=== PATIENT | male | born 1960 | race Two or more races ===

== ENCOUNTER 2023-05-21 18:29 | Inpatient (IN) | payer OTHER ==
[~2023-05-21] VITALS: Ht 167.6 cm; Wt 76.2 kg
[~2023-05-21 18:29] MED LIST: ACET-2070 GT; ACET-2605 GT; ACET-3511 GT; ALBU2.5V13 IH; ARGI1POW13 GT; ASCO500L2 GT; ASPI-1169 GT; ATOR80TA GT; BISA10SU11 RC; CHLO473M5 MM; CHOL200059 GT; DEXT15DR6 EACHEYE; DOCU100T2 GT; FERR220E2 PO; GUAI100S9 GT; INSU100V39 SQ; INSU100V7 SQ; MAGN400O6 GT; MULT9LIQ9 GT; NA P133E RC; NUT.237L31 GT; OMEP20CA15 GT; POVI3780 TP; SENN-261 GT; TERA10CA4 GT; ZINC220C6 GT
[2023-05-21 18:59] LABS: BASOPHILS % (AUTO) 0.5 % (0.0-2.0); EOSINOPHILS % (AUTO) 0.6 % (0.0-6.0); HEMATOCRIT 35 % (39-51); HEMOGLOBIN 11.1 g/dL (13.5-17.5); LYMPHOCYTES # (AUTO) 0.8 K/uL (0.8-4.8); LYMPHOCYTES % (AUTO) 9.6 % (20.0-44.0); MEAN CORPUSCULAR HEMOGLOBIN 25 PG (26.0-33.0); MEAN CORPUSCULAR HGB CONC 32 g/dl (31.0-36.0); MEAN CORPUSCULAR VOLUME 81 fL (80-96); MONOCYTES # (AUTO) 0.7 K/uL (0.1-1.30); MONOCYTES % (AUTO) 7.9 % (2.0-12.0); NEUTROPHILS # (AUTO) 6.8 K/uL (1.8-8.9); NEUTROPHILS % (AUTO) 81.4 % (43.0-81.0); PLATELET COUNT (AUTO) 341 K/uL (150-450); RED BLOOD CELL COUNT(AUTO) 4.39 MIL/uL (4.5-6.0); RED CELL DISTRIBUTION WIDTH 17.8 % (11.5-15.0); WHITE BLOOD COUNT (AUTO) 8.3 K/uL (4.3-11.0)
[2023-05-21] MEDS ORDERED: VANCOMYCIN 1 GM /D5W 250 ML PB IV ONE (18:59)
[2023-05-21] MEDS ORDERED: PIPERACI/TAZO 3.375GM/D5W 50ML PB IV ONE (18:59)
[2023-05-21] MEDS ORDERED: ONDANSETRON HCL/PF 4 MG/2 ML VIAL ONE (18:59)
[2023-05-21] MEDS ORDERED: IV NS 0.9% 1,000 ML BAG IV ONE (19:00)
[2023-05-21] MEDS ORDERED: PANTOPRAZOLE 80 MG in IV NS 0.9% 100 ML IV ONE (19:00)
[2023-05-21] MEDS ORDERED: AZITHROMYCIN 500 MG in IV D5W 250 ML IV ONE (19:00)
[2023-05-21] MEDS ORDERED: PANTOPRAZOLE 80 MG in IV NS 0.9% 500 ML IV PRN (19:00)
[2023-05-21] MEDS ORDERED: POLY15DR40 EACHEYE (19:00)
[2023-05-21] MEDS ORDERED: VANCOMYCIN 1 GM in IV D5W 250 ML IV ONE (19:00)
[2023-05-21] MEDS ORDERED: AMIN30LI2 GT (19:00)
[2023-05-21] MEDS ORDERED: ACETAMINOPHEN 650 MG/SUPP.RECT RC ONE (19:00)
[2023-05-21] MEDS ORDERED: PIPERACILLIN /TAZOBACTAM 3.375 G in IV D5W 50 ML IV ONE (19:00)
[2023-05-21] MEDS ORDERED: IPRA0.2S9 IH ×2 (19:00)
[2023-05-21] MEDS ORDERED: ONDA4TAB5 GT (19:00)
[2023-05-21] MEDS ORDERED: FERR300L GT (19:00)
[2023-05-21] MEDS ORDERED: PANTOPRAZOLE 80 MG in IV NS 0.9% 500 ML IV ONE (19:00)
[2023-05-21] MEDS ORDERED: ONDANSETRON HCL/PF 4 MG/2 ML VIAL IVP ONE (19:00)
[2023-05-21] MEDS ORDERED: ACET-868 GT ×2 (19:00)
[2023-05-21] MEDS ORDERED: TRIA15CR2 TP (19:00)
[2023-05-21] MEDS ORDERED: PETR113O TP (19:01)
[2023-05-21 19:02] VITALS: O2SAT 95
[2023-05-21 19:11] LABS: CALCIUM, SERUM 9.2 mg/dL (8.5-10.1); CARBON DIOXIDE 31 mmol/L (21-32); CHLORIDE 106 mmol/L (98-107); CREATININE 1.5 mg/dL (0.6-1.3); GLUCOSE 193 mg/dL (74-106); POTASSIUM 4.4 mmol/L (3.5-5.1); SODIUM SERUM 148 mmol/L (136-145); UREA NITROGEN, BLOOD 23 mg/dL (7-18)
[2023-05-21 19:22] LABS: ALANINE AMINOTRANSFERASE 49 U/L (12-78); ALBUMIN 2.5 g/dL (3.4-5.0); ALKALINE PHOSPHATASE 104 U/L (46-116); ASPARTATE AMINOTRANSFERASE 16 U/L (15-37); BILIRUBIN,DIRECT 0.2 mg/dL (0.0-0.2); NT-PRO BNP 217 pg/mL (0-125); TOTAL PROTEIN, SERUM 8.3 g/dL (6.4-8.2)
[2023-05-21 20:04] LABS: LACTIC ACID 2.5 mmol/L (0.4-2.0)
[2023-05-21] MEDS ORDERED: ACETAMINOPHEN ES 500 MG TABLET GT PRN (20:30)
[2023-05-21] MEDS: TERAZOSIN HCL 5 MG CAPSULE GT SCH (21:00)
[2023-05-21] MEDS ORDERED: MAGNESIUM HYDROXIDE 30 ML UDC PO PRN (21:00)
[2023-05-21] MEDS ORDERED: ZOLPIDEM TARTRATE 5 MG TABLET PO PRN (21:00)
[2023-05-21] MEDS ORDERED: Z GUARD REMEDY 4 OZ OINT TP PRN (21:00)
[2023-05-21] MEDS: ATORVASTATIN 40 MG TABLET GT SCH (21:00)
[2023-05-21] MEDS ORDERED: ACETAMINOPHEN 650 MG/20.3 ML UDC GT PRN (21:00)
[2023-05-21] MEDS ORDERED: MAG HYDROX/AL HYDROX/SIMETH 30 ML UDC PO PRN (21:00)
[2023-05-21] MEDS ORDERED: ONDANSETRON HCL/PF 4 MG/2 ML VIAL IVP PRN (21:00)
[2023-05-21] MEDS ORDERED: ACETAMINOPHEN 325 MG TABLET PO PRN (21:00)
[2023-05-21] MEDS ORDERED: DEXTROSE 50%-WATER 50 ML DISP.SYRIN IV PRN (21:30)
[2023-05-21 23:10] VITALS: O2SAT 99
[2023-05-21] MEDS ORDERED: ALBUTEROL FS 2.5 MG/0.5 ML VIAL.NEB IH PRN (23:30)
[2023-05-21] MEDS ORDERED: IPRATROPIUM NEB FS 0.5 MG/2.5 ML AMPUL.NEB IH PRN (23:30)
[2023-05-21] MEDS: PANTOPRAZOLE 40 MG VIAL IV SCH (23:32)
[2023-05-22] VITALS (19 sets, daily range): BP systolic 85–103; BP diastolic 50–67; TEMP 98–99.8; O2SAT 94–100
[2023-05-22] MEDS ORDERED: PIPERACILLIN /TAZOBACTAM 3.375 G in IV D5W 50 ML IV SCH ×2
[2023-05-22] MEDS: BLOOD SUGAR DIAGNOSTIC 1 EACH STRIP IN SCH ×5 (00:05→23:30)
[2023-05-22 00:56] LABS: HEMOGLOBIN 9.3 g/dL (13.5-17.5)
[2023-05-22] MEDS: INSULIN REGULAR, HUMAN 100 UNIT/ML 3 ML VIAL SQ PRN ×4 (01:11→23:34)
[2023-05-22] MEDS: IPRATROPIUM NEB FS 0.5 MG/2.5 ML AMPUL.NEB IH SCH ×4 (01:54→20:09)
[2023-05-22] MEDS: ALBUTEROL FS 2.5 MG/0.5 ML VIAL.NEB IH SCH ×4 (01:54→20:09)
[2023-05-22] MEDS ORDERED: PIPERACI/TAZO 3.375GM/D5W 50ML PB IV ONE (03:35)
[2023-05-22] MEDS ORDERED: ZOSYN IVPB 3.375 G in IV D5W 50ml IV ONE (04:00)
[2023-05-22] MEDS: IV NS 0.9% 1,000 ML IV PRN (06:01)
[2023-05-22] MEDS ORDERED: MAG HYDROX/AL HYDROX/SIMETH 30 ML UDC GT PRN (06:52)
[2023-05-22] MEDS ORDERED: ZOLPIDEM TARTRATE 5 MG TABLET GT PRN (06:52)
[2023-05-22] MEDS ORDERED: MAGNESIUM HYDROXIDE 30 ML UDC GT PRN (06:53)
[2023-05-22 07:42] LABS: BASOPHILS # (AUTO) 0.1 K/uL (0.0-0.2); EOSINOPHILS # (AUTO) 0.5 K/uL (0.0-0.7); EOSINOPHILS % (AUTO) 4.7 % (0.0-6.0); HEMATOCRIT 28 % (39-51); HEMOGLOBIN 8.7 g/dL (13.5-17.5); LYMPHOCYTES # (AUTO) 1.9 K/uL (0.8-4.8); LYMPHOCYTES % (AUTO) 18.4 % (20.0-44.0); MEAN CORPUSCULAR HEMOGLOBIN 25 PG (26.0-33.0); MEAN CORPUSCULAR HGB CONC 31 g/dl (31.0-36.0); MEAN CORPUSCULAR VOLUME 81 fL (80-96); MONOCYTES # (AUTO) 0.8 K/uL (0.1-1.30); MONOCYTES % (AUTO) 7.8 % (2.0-12.0); NEUTROPHILS # (AUTO) 6.8 K/uL (1.8-8.9); NEUTROPHILS % (AUTO) 68.1 % (43.0-81.0); PLATELET COUNT (AUTO) 280 K/uL (150-450); RED BLOOD CELL COUNT(AUTO) 3.41 MIL/uL (4.5-6.0); RED CELL DISTRIBUTION WIDTH 17.5 % (11.5-15.0)
[2023-05-22 07:56] LABS: CALCIUM, SERUM 8.9 mg/dL (8.5-10.1); CREATININE 1.6 mg/dL (0.6-1.3); MAGNESIUM 2.3 mg/dL (1.8-2.4); PHOSPHORUS 3.4 mg/dL (2.5-4.9); POTASSIUM 3.8 mmol/L (3.5-5.1)
[2023-05-22] MEDS: CHOLECALCIFEROL 1,000 UNIT TABLET (VIT D3) GT SCH (08:27)
[2023-05-22] MEDS: ACETAMINOPHEN 650 MG/20.3 ML UDC GT SCH (08:27)
[2023-05-22] MEDS: MULTIVIT W/MINERALS 1 TAB TABLET GT SCH (08:27)
[2023-05-22] MEDS: PANTOPRAZOLE 40 MG VIAL IV SCH ×2 (08:27→20:43)
[2023-05-22] MEDS: CHLORHEXIDINE GLUCONATE 15 ML UDC MM SCH ×2 (08:27→17:00)
[2023-05-22] MEDS: DOCUSATE SODIUM LIQ 100 MG/10 ML UDC GT SCH (08:27)
[2023-05-22] MEDS: VANCOMYCIN 0.75 GM in IV D5W 250 ML IV SCH ×2 (08:33→20:40)
[2023-05-22] MEDS: PIPERACILLIN /TAZOBACTAM 3.375 G in IV D5W 100 ML IV SCH ×2 (11:11→17:07)
[2023-05-22] MEDS ORDERED: IV NS 0.9% 1,000 ML IV ONE (11:30)
[2023-05-22 12:47] LABS: ABG BASE EXCESS 7.4 mmol/L; ABG PCO2 43.5 mmHg (35.0-45.0); ABG PH 7.479 (7.350-7.450); ABG PO2 64.5 mmHg (75.0-100.0); AaDO2 170.7 mmHg; COHb 0.3 % (0.5-1.5); MetHb 0.5 % (0.0-1.5); O2Hb 91.3 % (94.0-97.0); SITE, ABG Right Brachial; VENT MODE, BG COOL AEROSOL
[2023-05-22] MEDS: ATORVASTATIN 40 MG TABLET GT SCH (17:00)
[2023-05-22] MEDS: ARGININE/GLUTAMINE/CALCIUM BMB 1 EACH POWD.PACK GT SCH (17:00)
[2023-05-22] MEDS: PROSOURCE / PROSTAT (PYXIS) 30 ML UDC GT SCH (17:00)
[2023-05-22] MEDS: ASCORBIC ACID 500 MG TABLET GT SCH (17:07)
[2023-05-22] MEDS: TERAZOSIN HCL 5 MG CAPSULE GT SCH (17:09)
[2023-05-22] MEDS: FERROUS SULFATE UDC 300 MG/5 ML UDC GT SCH (17:10)
[2023-05-23] VITALS (19 sets, daily range): BP systolic 103–128; BP diastolic 61–78; TEMP 97.2–98.7; O2SAT 97–100
[2023-05-23] MEDS: PIPERACILLIN /TAZOBACTAM 3.375 G in IV D5W 100 ML IV SCH ×3 (01:19→17:11)
[2023-05-23] MEDS: ALBUTEROL FS 2.5 MG/0.5 ML VIAL.NEB IH SCH ×4 (01:33→19:37)
[2023-05-23] MEDS: IPRATROPIUM NEB FS 0.5 MG/2.5 ML AMPUL.NEB IH SCH ×4 (01:33→19:37)
[2023-05-23] MEDS: BLOOD SUGAR DIAGNOSTIC 1 EACH STRIP IN SCH ×3 (05:59→18:10)
[2023-05-23] MEDS: INSULIN REGULAR, HUMAN 100 UNIT/ML 3 ML VIAL SQ PRN ×3 (06:00→18:47)
[2023-05-23] MEDS: IV NS 0.9% 1,000 ML IV PRN ×2 (06:21→17:34)
[2023-05-23 07:31] LABS: CALCIUM, SERUM 8.5 mg/dL (8.5-10.1); CREATININE 1.5 mg/dL (0.6-1.3); POTASSIUM 3.5 mmol/L (3.5-5.1)
[2023-05-23] MEDS: CHLORHEXIDINE GLUCONATE 15 ML UDC MM SCH ×2 (08:59→17:11)
[2023-05-23] MEDS: DOCUSATE SODIUM LIQ 100 MG/10 ML UDC GT SCH (08:59)
[2023-05-23] MEDS: CHOLECALCIFEROL 1,000 UNIT TABLET (VIT D3) GT SCH (08:59)
[2023-05-23] MEDS: PANTOPRAZOLE 40 MG VIAL IV SCH ×2 (08:59→21:13)
[2023-05-23] MEDS: MULTIVIT W/MINERALS 1 TAB TABLET GT SCH (08:59)
[2023-05-23] MEDS: ACETAMINOPHEN 650 MG/20.3 ML UDC GT SCH (08:59)
[2023-05-23] MEDS: VANCOMYCIN 0.75 GM in IV D5W 250 ML IV SCH ×2 (09:00→21:13)
[2023-05-23] MEDS: ASCORBIC ACID 500 MG TABLET GT SCH (17:11)
[2023-05-23] MEDS: FERROUS SULFATE UDC 300 MG/5 ML UDC GT SCH (17:11)
[2023-05-23] MEDS: ATORVASTATIN 40 MG TABLET GT SCH (17:11)
[2023-05-23] MEDS: TERAZOSIN HCL 5 MG CAPSULE GT SCH (17:11)
[2023-05-23] MEDS: ARGININE/GLUTAMINE/CALCIUM BMB 1 EACH POWD.PACK GT SCH (17:13)
[2023-05-23] MEDS: PROSOURCE / PROSTAT (PYXIS) 30 ML UDC GT SCH (17:13)
[2023-05-24] VITALS (18 sets, daily range): BP systolic 93–135; BP diastolic 58–77; TEMP 97.6–98.8; O2SAT 96–100
[2023-05-24] MEDS: BLOOD SUGAR DIAGNOSTIC 1 EACH STRIP IN SCH ×5 (00:13→23:34)
[2023-05-24] MEDS: INSULIN REGULAR, HUMAN 100 UNIT/ML 3 ML VIAL SQ PRN ×4 (00:14→23:36)
[2023-05-24] MEDS: PIPERACILLIN /TAZOBACTAM 3.375 G in IV D5W 100 ML IV SCH ×3 (01:53→17:42)
[2023-05-24] MEDS: ALBUTEROL FS 2.5 MG/0.5 ML VIAL.NEB IH SCH ×4 (01:56→20:14)
[2023-05-24] MEDS: IPRATROPIUM NEB FS 0.5 MG/2.5 ML AMPUL.NEB IH SCH ×4 (01:56→20:14)
[2023-05-24] MEDS: IV NS 0.9% 1,000 ML IV PRN (05:57)
[2023-05-24 06:57] LABS: BASOPHILS # (AUTO) 0.1 K/uL (0.0-0.2); BASOPHILS % (AUTO) 1.2 % (0.0-2.0); EOSINOPHILS # (AUTO) 0.6 K/uL (0.0-0.7); EOSINOPHILS % (AUTO) 8.8 % (0.0-6.0); HEMATOCRIT 24 % (39-51); HEMOGLOBIN 7.6 g/dL (13.5-17.5); LYMPHOCYTES # (AUTO) 1.3 K/uL (0.8-4.8); LYMPHOCYTES % (AUTO) 19.9 % (20.0-44.0); MEAN CORPUSCULAR HEMOGLOBIN 26 PG (26.0-33.0); MEAN CORPUSCULAR HGB CONC 32 g/dl (31.0-36.0); MEAN CORPUSCULAR VOLUME 81 fL (80-96); MONOCYTES # (AUTO) 0.4 K/uL (0.1-1.30); MONOCYTES % (AUTO) 6.4 % (2.0-12.0); NEUTROPHILS % (AUTO) 63.7 % (43.0-81.0); PLATELET COUNT (AUTO) 295 K/uL (150-450); RED BLOOD CELL COUNT(AUTO) 2.94 MIL/uL (4.5-6.0); WHITE BLOOD COUNT (AUTO) 6.3 K/uL (4.3-11.0)
[2023-05-24 07:06] LABS: ALBUMIN 1.8 g/dL (3.4-5.0); BILIRUBIN,TOTAL 0.9 mg/dL (0.2-1.0); CALCIUM, SERUM 8.9 mg/dL (8.5-10.1); CREATININE 1.3 mg/dL (0.6-1.3); MAGNESIUM 2.2 mg/dL (1.8-2.4); PHOSPHORUS 3.3 mg/dL (2.5-4.9); TOTAL PROTEIN, SERUM 6.5 g/dL (6.4-8.2)
[2023-05-24] MEDS ORDERED: ANESTHESIA TRAY IN PYXIS 1 EA TRAY MC ONE (07:36)
[2023-05-24] MEDS: VANCOMYCIN 0.75 GM in IV D5W 250 ML IV SCH ×2 (09:59→19:54)
[2023-05-24] MEDS: POTASSIUM CL. PREMIX PERIPHER. 50 ML IV SCH ×6 (09:59→13:56)
[2023-05-24] MEDS: CHLORHEXIDINE GLUCONATE 15 ML UDC MM SCH ×2 (10:00→17:40)
[2023-05-24] MEDS: DOCUSATE SODIUM LIQ 100 MG/10 ML UDC GT SCH (10:00)
[2023-05-24] MEDS ORDERED: IV D5W 1,000 ML IV ONE (10:00)
[2023-05-24] MEDS: CHOLECALCIFEROL 1,000 UNIT TABLET (VIT D3) GT SCH (10:00)
[2023-05-24] MEDS ORDERED: GLUCERNA 1.2 1,000 ML BOTTLE NG SCH (10:00)
[2023-05-24] MEDS: MULTIVIT W/MINERALS 1 TAB TABLET GT SCH (10:00)
[2023-05-24] MEDS: PANTOPRAZOLE 40 MG VIAL IV SCH ×2 (10:00→20:17)
[2023-05-24] MEDS: ACETAMINOPHEN 650 MG/20.3 ML UDC GT SCH (10:01)
[2023-05-24] MEDS: POTASSIUM CHLORIDE 20 MEQ POWDER PACKET NG SCH ×2 (12:13→13:56)
[2023-05-24] MEDS: ARGININE/GLUTAMINE/CALCIUM BMB 1 EACH POWD.PACK GT SCH (17:40)
[2023-05-24] MEDS: PROSOURCE / PROSTAT (PYXIS) 30 ML UDC GT SCH (17:40)
[2023-05-24] MEDS: ASCORBIC ACID 500 MG TABLET GT SCH (17:41)
[2023-05-24] MEDS: ATORVASTATIN 40 MG TABLET GT SCH (17:41)
[2023-05-24] MEDS: FERROUS SULFATE UDC 300 MG/5 ML UDC GT SCH (17:41)
[2023-05-24] MEDS: TERAZOSIN HCL 5 MG CAPSULE GT SCH (17:41)
[2023-05-25] VITALS (18 sets, daily range): BP systolic 103–135; BP diastolic 62–81; TEMP 97.6–98.4; O2SAT 97–100
[2023-05-25] MEDS: IPRATROPIUM NEB FS 0.5 MG/2.5 ML AMPUL.NEB IH SCH ×4 (02:19→20:28)
[2023-05-25] MEDS: ALBUTEROL FS 2.5 MG/0.5 ML VIAL.NEB IH SCH ×4 (02:19→20:29)
[2023-05-25] MEDS: PIPERACILLIN /TAZOBACTAM 3.375 G in IV D5W 100 ML IV SCH ×3 (02:30→17:25)
[2023-05-25] MEDS: INSULIN REGULAR, HUMAN 100 UNIT/ML 3 ML VIAL SQ PRN ×3 (05:25→17:59)
[2023-05-25] MEDS: BLOOD SUGAR DIAGNOSTIC 1 EACH STRIP IN SCH ×3 (05:28→17:58)
[2023-05-25 07:16] LABS: BASOPHILS # (AUTO) 0.1 K/uL (0.0-0.2); BASOPHILS % (AUTO) 1.2 % (0.0-2.0); EOSINOPHILS # (AUTO) 0.4 K/uL (0.0-0.7); EOSINOPHILS % (AUTO) 6.4 % (0.0-6.0); HEMATOCRIT 24 % (39-51); HEMOGLOBIN 7.8 g/dL (13.5-17.5); LYMPHOCYTES # (AUTO) 1.5 K/uL (0.8-4.8); LYMPHOCYTES % (AUTO) 21.5 % (20.0-44.0); MEAN CORPUSCULAR HEMOGLOBIN 26 PG (26.0-33.0); MEAN CORPUSCULAR HGB CONC 32 g/dl (31.0-36.0); MEAN CORPUSCULAR VOLUME 80 fL (80-96); MONOCYTES # (AUTO) 0.4 K/uL (0.1-1.30); MONOCYTES % (AUTO) 5.5 % (2.0-12.0); NEUTROPHILS # (AUTO) 4.5 K/uL (1.8-8.9); NEUTROPHILS % (AUTO) 65.4 % (43.0-81.0); PLATELET COUNT (AUTO) 286 K/uL (150-450); RED BLOOD CELL COUNT(AUTO) 3.04 MIL/uL (4.5-6.0); RED CELL DISTRIBUTION WIDTH 17.2 % (11.5-15.0); WHITE BLOOD COUNT (AUTO) 6.8 K/uL (4.3-11.0)
[2023-05-25 07:40] LABS: ALBUMIN 1.7 g/dL (3.4-5.0); BILIRUBIN,TOTAL 0.7 mg/dL (0.2-1.0); CALCIUM, SERUM 8.6 mg/dL (8.5-10.1); CREATININE 1.1 mg/dL (0.6-1.3); MAGNESIUM 2.1 mg/dL (1.8-2.4); PHOSPHORUS 2.6 mg/dL (2.5-4.9); POTASSIUM 3.2 mmol/L (3.5-5.1); TOTAL PROTEIN, SERUM 6.4 g/dL (6.4-8.2)
[2023-05-25] MEDS: ACETAMINOPHEN 650 MG/20.3 ML UDC GT SCH (08:03)
[2023-05-25] MEDS: CHOLECALCIFEROL 1,000 UNIT TABLET (VIT D3) GT SCH (08:03)
[2023-05-25] MEDS: DOCUSATE SODIUM LIQ 100 MG/10 ML UDC GT SCH (08:03)
[2023-05-25] MEDS: CHLORHEXIDINE GLUCONATE 15 ML UDC MM SCH ×2 (08:03→17:22)
[2023-05-25] MEDS: PANTOPRAZOLE 40 MG VIAL IV SCH ×2 (08:03→21:20)
[2023-05-25] MEDS: VANCOMYCIN 0.75 GM in IV D5W 250 ML IV SCH ×3 (08:04→21:01)
[2023-05-25] MEDS: MULTIVIT W/MINERALS 1 TAB TABLET GT SCH (08:04)
[2023-05-25] MEDS: POTASSIUM CHLORIDE 20 MEQ POWDER PACKET NG SCH ×2 (10:27→11:35)
[2023-05-25] MEDS: FERROUS SULFATE UDC 300 MG/5 ML UDC GT SCH (17:23)
[2023-05-25] MEDS: ATORVASTATIN 40 MG TABLET GT SCH (17:23)
[2023-05-25] MEDS: TERAZOSIN HCL 5 MG CAPSULE GT SCH (17:23)
[2023-05-25] MEDS: ASCORBIC ACID 500 MG TABLET GT SCH (17:23)
[2023-05-25] MEDS: PROSOURCE / PROSTAT (PYXIS) 30 ML UDC GT SCH (17:23)
[2023-05-25] MEDS: ARGININE/GLUTAMINE/CALCIUM BMB 1 EACH POWD.PACK GT SCH (17:23)
[2023-05-26] VITALS (11 sets, daily range): BP systolic 106–125; BP diastolic 67–98; TEMP 98.2–98.6; O2SAT 97–100
[2023-05-26] MEDS: BLOOD SUGAR DIAGNOSTIC 1 EACH STRIP IN SCH ×2 (00:42→06:51)
[2023-05-26] MEDS: INSULIN REGULAR, HUMAN 100 UNIT/ML 3 ML VIAL SQ PRN ×2 (00:47→06:53)
[2023-05-26] MEDS: PIPERACILLIN /TAZOBACTAM 3.375 G in IV D5W 100 ML IV SCH ×2 (02:03→09:01)
[2023-05-26] MEDS: IPRATROPIUM NEB FS 0.5 MG/2.5 ML AMPUL.NEB IH SCH ×3 (02:19→13:26)
[2023-05-26] MEDS: ALBUTEROL FS 2.5 MG/0.5 ML VIAL.NEB IH SCH ×3 (02:19→13:25)
[2023-05-26 07:04] LABS: BASOPHILS # (AUTO) 0.1 K/uL (0.0-0.2); BASOPHILS % (AUTO) 1.1 % (0.0-2.0); EOSINOPHILS # (AUTO) 0.3 K/uL (0.0-0.7); EOSINOPHILS % (AUTO) 5.6 % (0.0-6.0); HEMATOCRIT 27 % (39-51); HEMOGLOBIN 8.5 g/dL (13.5-17.5); LYMPHOCYTES # (AUTO) 1.4 K/uL (0.8-4.8); LYMPHOCYTES % (AUTO) 24.4 % (20.0-44.0); MEAN CORPUSCULAR HEMOGLOBIN 26 PG (26.0-33.0); MEAN CORPUSCULAR HGB CONC 32 g/dl (31.0-36.0); MEAN CORPUSCULAR VOLUME 81 fL (80-96); MONOCYTES # (AUTO) 0.3 K/uL (0.1-1.30); MONOCYTES % (AUTO) 6.1 % (2.0-12.0); NEUTROPHILS # (AUTO) 3.5 K/uL (1.8-8.9); NEUTROPHILS % (AUTO) 62.8 % (43.0-81.0); PLATELET COUNT (AUTO) 314 K/uL (150-450); RED BLOOD CELL COUNT(AUTO) 3.31 MIL/uL (4.5-6.0); RED CELL DISTRIBUTION WIDTH 17.5 % (11.5-15.0); WHITE BLOOD COUNT (AUTO) 5.6 K/uL (4.3-11.0)
[2023-05-26 07:36] LABS: ALBUMIN 1.8 g/dL (3.4-5.0); BILIRUBIN,TOTAL 0.6 mg/dL (0.2-1.0); CREATININE 1.2 mg/dL (0.6-1.3); MAGNESIUM 2.3 mg/dL (1.8-2.4); PHOSPHORUS 3.3 mg/dL (2.5-4.9); POTASSIUM 3.7 mmol/L (3.5-5.1); TOTAL PROTEIN, SERUM 6.8 g/dL (6.4-8.2)
[2023-05-26] MEDS: CHLORHEXIDINE GLUCONATE 15 ML UDC MM SCH ×2 (08:42→17:55)
[2023-05-26] MEDS: MULTIVIT W/MINERALS 1 TAB TABLET GT SCH (08:42)
[2023-05-26] MEDS: CHOLECALCIFEROL 1,000 UNIT TABLET (VIT D3) GT SCH (08:42)
[2023-05-26] MEDS: DOCUSATE SODIUM LIQ 100 MG/10 ML UDC GT SCH (08:42)
[2023-05-26] MEDS: ACETAMINOPHEN 650 MG/20.3 ML UDC GT SCH (08:42)
[2023-05-26] MEDS: PANTOPRAZOLE 40 MG VIAL IV SCH (08:43)
[2023-05-26] MEDS ORDERED: GLUCERNA 1.2 1,000 ML BOTTLE NG SCH (10:00)
[2023-05-26] MEDS: ARGININE/GLUTAMINE/CALCIUM BMB 1 EACH POWD.PACK GT SCH (17:55)
[2023-05-26] MEDS: ASCORBIC ACID 500 MG TABLET GT SCH (17:55)
[2023-05-26] MEDS: ATORVASTATIN 40 MG TABLET GT SCH (17:55)
[2023-05-26] MEDS: TERAZOSIN HCL 5 MG CAPSULE GT SCH (17:55)
[2023-05-26] MEDS: PROSOURCE / PROSTAT (PYXIS) 30 ML UDC GT SCH (17:55)
[2023-05-26] MEDS: FERROUS SULFATE UDC 300 MG/5 ML UDC GT SCH (18:03)
[2023-05-26] MEDS ORDERED: VANCOMYCIN 1 GM in IV D5W 250ml IV SCH (20:00)
== END 2023-05-26 18:20 | DRG 720 ==
LOC: ER 18:34 → TELE-TD 20:52 → TELE1 20:56
PROVIDERS: ADMIT Nurse Practitioner Acute Care
PROC: 0DJ08ZZ Inspection of Upper Intestinal Tract, Via Natural or Artificial Opening Endoscopic (ICD-10-PCS; principal; 2023-05-24)
DX: A41.9 Sepsis, unspecified organism (principal); N17.0 Acute kidney failure with tubular necrosis; J96.21 Acute and chronic respiratory failure with hypoxia; J69.0 Pneumonitis due to inhalation of food and vomit; J95.851 Ventilator associated pneumonia; R53.2 Functional quadriplegia; D68.69 Other thrombophilia; K92.2 Gastrointestinal hemorrhage, unspecified; E87.0 Hyperosmolality and hypernatremia; E87.20 Acidosis, unspecified; D63.8 Anemia in other chronic diseases classified elsewhere; E87.1 Hypo-osmolality and hyponatremia; E44.0 Moderate protein-calorie malnutrition; E78.5 Hyperlipidemia, unspecified; E86.1 Hypovolemia; E87.6 Hypokalemia; E88.09 Other disorders of plasma-protein metabolism, not elsewhere classified; I25.10 Atherosclerotic heart disease of native coronary artery without angina pectoris; I69.354 Hemiplegia and hemiparesis following cerebral infarction affecting left non-dominant side; K21.9 Gastro-esophageal reflux disease without esophagitis; K29.70 Gastritis, unspecified, without bleeding; Z20.822 Contact with and (suspected) exposure to COVID-19; Z93.0 Tracheostomy status; R13.10 Dysphagia, unspecified; I10 Essential (primary) hypertension; N40.0 Benign prostatic hyperplasia without lower urinary tract symptoms; Z74.09 Other reduced mobility; Z93.1 Gastrostomy status; N18.9 Chronic kidney disease, unspecified; Z79.4 Long term (current) use of insulin; E11.22 Type 2 diabetes mellitus with diabetic chronic kidney disease; Y84.8 Other medical procedures as the cause of abnormal reaction of the patient, or of later complication, without mention of misadventure at the time of the procedure; Y92.129 Unspecified place in nursing home as the place of occurrence of the external cause; I12.9 Hypertensive chronic kidney disease with stage 1 through stage 4 chronic kidney disease, or unspecified chronic kidney disease; Z66 Do not resuscitate; Z79.82 Long term (current) use of aspirin; Z99.11 Dependence on respirator [ventilator] status; E11.51 Type 2 diabetes mellitus with diabetic peripheral angiopathy without gangrene; L97.329 Non-pressure chronic ulcer of left ankle with unspecified severity; I70.243 Atherosclerosis of native arteries of left leg with ulceration of ankle; I70.239 Atherosclerosis of native arteries of right leg with ulceration of unspecified site; Z68.27 Body mass index [BMI] 27.0-27.9, adult; L97.519 Non-pressure chronic ulcer of other part of right foot with unspecified severity
CPT/HCPCS: 31720; 36415; 36600; 71045-TC; 80048-TC; 80053-TC; 80061-TC; 80076-TC; 80202-TC; 82803-TC; 82962-TC; 83605-TC; 83735-TC; 83880; 84100-TC; 84484-TC; 85025-TC; 85027-TC; 87040-TC; 87081-TC; 94640-TC; 94664-TC; 94760-TC; 94762-TC; 94799-TC; A4217; A4223; A4349; A6253; A6403; C9113; C9803; G0378; J0456; J1815; J2405; J2543; J2704; J3370; J3480; J7030; J7040; J7050; J7060; J7070